=== PATIENT | male | born 1995 | race Hispanic/Latino ===

== ENCOUNTER 2019-11-29 19:23 | Emergency (ER) | payer SELFPAY ==
[2019-11-29] MEDS ORDERED: AZITHROMYCIN 250 MG TAB ONE (20:43)
[2019-11-29] MEDS ORDERED: KETOROLAC 30 MG/ML INJ ONE (20:43)
[2019-11-29] MEDS ORDERED: CEFTRIAXONE 250 MG/VIAL ONE (20:43)
[2019-11-29] MEDS ORDERED: WATER FOR INJ,STERILE 10 ML ONE (20:43)
[2019-11-29] MEDS ORDERED: HYDROCODONE/APAP 5/325 MG TAB ONE (20:46)
[2019-11-29] MEDS ORDERED: IBUPROFEN 400 MG TAB ONE (21:14)
[2019-11-29] MEDS ORDERED: PHENAZOPYRIDINE 100MG TAB PO ONE (21:14)
--- NOTE | 2019-11-29 21:16 | EDPHYS ---
Physician Documentation [facility] Name: Vel Morris Age: 24 yrs Sex: Male : 1995 Arrival Date: 11/29/2019 Time: 19:26 Bed 7 Private MD: ED Physician Valentina Ortega HPI: 11/29 20:14 This 24 yrs old Male presents to ER via Ambulatory with complaints of STD snw Exposure. 20:14 Onset: The symptoms/episode began/occurred acutely, 1 week(s) ago, and became snw persistent. Associated signs and symptoms: Pertinent positives: burning with urination s/p unprotected intercourse. The patient has not experienced similar symptoms in the past. The patient has not recently seen a physician. Historical: - Allergies: 19:30 NKDA; aj1 - Home Meds: 19:30 None [Active]; aj1 - PMHx: 19:30 None; aj1 - PSHx: 19:30 None; aj1 - Immunization history:: Flu vaccine is not up to date. - Coronavirus screen:: The patient has NOT traveled to [place] in the past 14 days. - Social history:: Smoking status: Patient/guardian denies using tobacco. - Ebola Screening: : Patient denies travel to an Ebola-affected area in the 21 days before illness onset. ROS: 20:13 Eyes: Negative for injury, pain, redness, and discharge, ENT: Negative for injury, snw pain, and discharge, Neck: Negative for injury, pain, and swelling, Cardiovascular: Negative for chest pain, palpitations, and edema, Respiratory: Negative for shortness of breath, cough, wheezing, and pleuritic chest pain, Abdomen/GI: Negative for abdominal pain, nausea, vomiting, diarrhea, and constipation, rectal pain Back: Negative for injury and pain, : Negative for injury, bleeding, discharge, and swelling, MS/Extremity: Negative for injury and deformity, Skin: Negative for injury, rash, and discoloration, Neuro: Negative for headache, weakness, numbness, tingling, and seizure. 20:13 Constitutional: Positive for body aches. Exam: 20:01 Constitutional: This is a well developed, well nourished patient who is awake, alert, snw and in no acute distress. Head/Face: Normocephalic, atraumatic. Eyes: Pupils equal round and reactive to light, extra-ocular motions intact. Lids and lashes normal. Conjunctiva and sclera are non-icteric and not injected. Cornea within normal limits. Periorbital areas with no swelling, redness, or edema. ENT: Nares patent. No nasal discharge, no septal abnormalities noted. Tympanic membranes are normal and external auditory canals are clear. Oropharynx with no redness, swelling, or masses, exudates, or evidence of obstruction, uvula midline. Mucous membranes moist. Neck: Trachea midline, no thyromegaly or masses palpated, and no cervical lymphadenopathy. Supple, full range of motion without nuchal rigidity, or vertebral point tenderness. No Meningismus. Chest/axilla: Normal chest wall appearance and motion. Nontender with no deformity. No lesions are appreciated. Respiratory: Lungs have equal breath sounds bilaterally, clear to auscultation and percussion. No rales, rhonchi or wheezes noted. No increased work of breathing, no retractions or nasal flaring. 20:01 Cardiovascular: Rate: tachycardic, Rhythm: regular, Heart sounds: normal. Vital Signs: 19:30 BP 131 / 89; Pulse 125; Resp 20; Temp 100.2; Pulse Ox 97% on R/A; Weight 149.69 kg (R); aj1 Height 5 ft. 10 in. (177.80 cm) (R); Pain 10/10; 21:04 BP 138 / 91; Pulse 113; Resp 18; Temp 100.6(O); Pulse Ox 100% on R/A; jb4 19:30 Body Mass Index 47.35 (149.69 kg, 177.80 cm) aj1 MDM: 19:33 Patient medically screened. debra 21:16 Data reviewed: vital signs, nurses notes. Data interpreted: Pulse oximetry: on room air snw is 100 %. Interpretation: normal. Counseling: I had a detailed discussion with the patient and/or guardian regarding: the historical points, exam findings, and any diagnostic results supporting the discharge/admit diagnosis, lab results, the need for outpatient follow up, to return to the emergency department if symptoms worsen or persist or if there are any questions or concerns that arise at home. Response to treatment: the patient's symptoms have mildly improved after treatment. Special discussion: I have referred the patient to see his PCP for further evaluation of high blood pressure. I discussed in detail with the patient the higher chance of wound infection based on his presenting history. Based on the history and exam findings, there is no indication for further emergent testing or inpatient evaluation. I discussed with the patient/guardian the need to see the primary care provider for further evaluation of the symptoms. 11/29 19:36 Order name: Flu snw 11/29 21:09 Order name: Influenza Screen (A ; Complete Time: 21:14 EDMS Administered Medications: 20:48 Drug: HYDROcodone-acetaminophen (5 mg-500 mg) 1 tabs {Note: Rass score 0.} Route: PO; jb4 21:14 Follow up: Response: No adverse reaction; Pain is decreased; RASS: Alert and Calm (0) jb4 20:49 Drug: Zithromax 1 grams Route: PO; jb4 21:14 Follow up: Response: No adverse reaction jb4 20:49 Drug: TORadol 30 mg Route: IM; Site: left gluteus; jb4 21:14 Follow up: Response: No adverse reaction; Pain is decreased jb4 20:50 Drug: Rocephin (cefTRIAXone) 250 mg Route: IM; Site: left gluteus; jb4 21:14 Follow up: Response: No adverse reaction jb4 21:13 Drug: Motrin 400 mg Route: PO; jb4 21:42 Follow up: Response: No adverse reaction jb4 21:13 Drug: Pyridium 100 mg Route: PO; jb4 21:42 Follow up: Response: No adverse reaction; Pain is decreased jb4 Disposition: 11/30 19:06 Co-signature as Attending Physician, Valentina Ortega MD. ma2 Disposition: 11/29/19 21:15 Discharged to Home. Impression: Urethritis and urethral syndrome. - Condition is Stable. - Discharge Instructions: Sexually Transmitted Disease, Urethritis, Adult, Proctitis, Safe Sex. - Prescriptions for Doxycycline Hyclate 100 mg Oral Tablet - take 1 tablet by ORAL route every 12 hours; 20 tablet. - Medication Reconciliation Form, Thank You Letter, Antibiotic Education, Prescription Opioid Use form. - Follow up: Emergency Department; When: As needed; Reason: Worsening of condition. Follow up: Private Physician; When: 1 - 2 days; Reason: Recheck today's complaints, Continuance of care, Re-evaluation by your physician. Signatures: Dispatcher [employer] Nicole Benson RN RN aj1 Giovani Segovia MD MD cha Therrien, Shelly, CAUL PULLER-C CAUL PULLER-Csnw Nichol Millan, RN RN lp1 Nick Miller RN RN jb4 Valentina Ortega MD MD ma2 Corrections: (The following items were deleted from the chart) 11/29 21:42 21:15 11/29/2019 21:15 Discharged to Home. Impression: Urethritis and urethral jb4 syndrome. Condition is Stable. Forms are Medication Reconciliation Form, Thank You Letter, Antibiotic Education, Prescription Opioid Use. Follow up: Emergency Department; When: As needed; Reason: Worsening of condition. Follow up: Private Physician; When: 1 - 2 days; Reason: Recheck today's complaints, Continuance of care, Re-evaluation by your physician. snw
--- NOTE | 2019-11-29 21:16 | ER ---
Nurse's Notes [facility] Name: Vel Morris Age: 24 yrs Sex: Male : 1995 Arrival Date: 11/29/2019 Time: 19:26 Bed 7 Private MD: Diagnosis: Urethritis and urethral syndrome Presentation: 11/29 19:28 Presenting complaint: Patient states: "It pablo when I pee, but it only hurts at the aj1 end when I finish peeing and I got discharged a little bit so I was thinking it was a sexually transmitted disease" States he has been feeling this way for the past week, but today he started running a fever so he came in. Transition of care: patient was not received from another setting of care. Onset of symptoms was November 2019. Risk Assessment: Do you want to hurt yourself or someone else? Patient reports no desire to harm self or others. Initial Sepsis Screen: Does the patient meet any 2 criteria? HR > 90 bpm. No. Patient's initial sepsis screen is negative. Does the patient have a suspected source of infection? Yes: Dysuria/Frequency/Urgency/UTI. Care prior to arrival: None. 19:28 Method Of Arrival: Ambulatory aj1 19:28 Acuity: JM 3 aj1 Triage Assessment: 19:30 General: Appears in no apparent distress. comfortable, Behavior is anxious. Pain: aj1 Complains of pain in pelvis. Neuro: Level of Consciousness is awake, alert, obeys commands. Cardiovascular: Patient's skin is warm and dry. Respiratory: Airway is patent Respiratory effort is even, unlabored, Respiratory pattern is regular, symmetrical. GI:. Historical: - Allergies: 19:30 NKDA; aj1 - Home Meds: 19:30 None [Active]; aj1 - PMHx: 19:30 None; aj1 - PSHx: 19:30 None; aj1 - Immunization history:: Flu vaccine is not up to date. - Coronavirus screen:: The patient has NOT traveled to [place] in the past 14 days. - Social history:: Smoking status: Patient/guardian denies using tobacco. - Ebola Screening: : Patient denies travel to an Ebola-affected area in the 21 days before illness onset. Screenin:35 Abuse screen: Denies threats or abuse. Nutritional screening: No deficits noted. jb4 Tuberculosis screening: No symptoms or risk factors identified. Fall Risk None identified. Assessment: 19:35 General: Appears in no apparent distress. uncomfortable, Behavior is calm, cooperative, jb4 appropriate for age. Pain: Complains of pain in groin Pain radiates to abdomen Pain currently is 9 out of 10 on a pain scale. Neuro: Level of Consciousness is awake, alert, obeys commands, Oriented to person, place, time, situation. Cardiovascular: Patient's skin is warm and dry. Respiratory: Airway is patent Respiratory effort is even, unlabored, Respiratory pattern is regular, symmetrical. GI: No signs and/or symptoms were reported involving the gastrointestinal system. : Urine is cloudy, Penile discharge is white, Genitalia appear normal Reports burning with urination, pain in bilateral flank(s), lower quadrant(s) in lower back scrotum, testicle, with urination. EENT: No signs and/or symptoms were reported regarding the EENT system. Derm: Skin is intact, Skin is pink, warm \\T\\ dry. Musculoskeletal: Circulation, motion, and sensation intact. Range of motion: intact in all extremities. 20:30 Reassessment: Patient appears in no apparent distress at this time. Patient and/or jb4 family updated on plan of care and expected duration. Pain level reassessed. Patient is alert, oriented x 3, equal unlabored respirations, skin warm/dry/pink. 21:41 Reassessment: Patient appears in no apparent distress at this time. Patient and/or jb4 family updated on plan of care and expected duration. Pain level reassessed. Patient is alert, oriented x 3, equal unlabored respirations, skin warm/dry/pink. Patient states feeling better. Vital Signs: 19:30 BP 131 / 89; Pulse 125; Resp 20; Temp 100.2; Pulse Ox 97% on R/A; Weight 149.69 kg (R); aj1 Height 5 ft. 10 in. (177.80 cm) (R); Pain 10/10; 21:04 BP 138 / 91; Pulse 113; Resp 18; Temp 100.6(O); Pulse Ox 100% on R/A; jb4 19:30 Body Mass Index 47.35 (149.69 kg, 177.80 cm) [facility] ED Course: 19:26 Patient arrived in ED. es 19:30 Triage completed. aj1 19:30 Arm band placed on Patient placed in an exam room. aj1 19:32 [facility] snw 19:33 Valentina Ortega MD is Attending Physician. snw 19:35 Patient has correct armband on for positive identification. Bed in low position. Call jb4 light in reach. Side rails up X 1. Pulse ox on. NIBP on. 20:16 Nick Miller, RN is Primary Nurse. jb4 21:42 No provider procedures requiring assistance completed. Patient did not have IV access jb4 during this emergency room visit. Administered Medications: 20:48 Drug: HYDROcodone-acetaminophen (5 mg-500 mg) 1 tabs {Note: Rass score 0.} Route: PO; jb4 21:14 Follow up: Response: No adverse reaction; Pain is decreased; RASS: Alert and Calm (0) jb4 20:49 Drug: Zithromax 1 grams Route: PO; jb4 21:14 Follow up: Response: No adverse reaction jb4 20:49 Drug: TORadol 30 mg Route: IM; Site: left gluteus; jb4 21:14 Follow up: Response: No adverse reaction; Pain is decreased jb4 20:50 Drug: Rocephin (cefTRIAXone) 250 mg Route: IM; Site: left gluteus; jb4 21:14 Follow up: Response: No adverse reaction jb4 21:13 Drug: Motrin 400 mg Route: PO; jb4 21:42 Follow up: Response: No adverse reaction jb4 21:13 Drug: Pyridium 100 mg Route: PO; jb4 21:42 Follow up: Response: No adverse reaction; Pain is decreased jb4 Outcome: 21:15 Discharge ordered by . snw 21:42 Discharged to home ambulatory. jb4 21:42 Condition: stable 21:42 Discharge instructions given to patient, Instructed on discharge instructions, follow up and referral plans. medication usage, safe sex practices, Demonstrated understanding of instructions, follow-up care, medications, Prescriptions given X 1. 21:42 Patient left the ED. jb4 Signatures: Nicole March RN RN aj1 Aline Abrams FNP-C RAWHIDE TRIMMER-Csnw Madelaine Yen Nick Miller RN RN jb4 Corrections: (The following items were deleted from the chart) 19:32 19:28 Acuity: JM 4 aj1 aj1
[2019-11-29 21:50] VITALS: BP 138/91; TEMP 100.6; O2SAT 100
== END 2019-11-29 21:42 | disposition home or self-care (01) ==
LOC: ER 19:23
DX: N34.2 Other urethritis (principal); N34.3 Urethral syndrome, unspecified
CPT/HCPCS: 87804; 96372; 99283; J0696

== ENCOUNTER 2020-12-03 22:55 | Inpatient (IN) | payer SELFPAY ==
[2020-12-04] MEDS ORDERED: NA CHLORIDE 0.9% 1,000 ML ONE ×3 (00:20→05:30)
[2020-12-04 00:26] LABS: Absolute Lymphocytes (CBC) 4.4 K/uL (0.7-4.9); Basophils % 0.3 % (0-1.3); Hematocrit 47.3 % (39.6-49.0); Lymphocytes % 37.2 % (15.3-44.8); MPV 9.5 fL (7.6-11.3); Protime INR 1.07; RBC Red Blood Cell Count 5.48 M/uL (4.33-5.43)
[2020-12-04 00:51] LABS: ALT/SGPT 82 U/L (12-78); AST/SGOT 165 U/L (15-37); Albumin 4.1 g/dL (3.4-5.0); Alkaline Phosphatase 75 U/L (45-117); BUN Blood Urea Nitrogen 19 mg/dL (7-18); Bicarbonate 22 mmol/L (21-32); Bilirubin Direct 0.1 mg/dL (0-0.2); Bilirubin Total 0.4 mg/dL (0.2-1.0); Glucose Level 115 mg/dL (74-106); Magnesium 2.6 mg/dL (1.8-2.4); NT PRO-BNP 8 pg/mL (<125); Potassium 3.2 mmol/L (3.5-5.1); Protein, Total 8.7 g/dL (6.4-8.2); Sodium Level 137 mmol/L (136-145); Troponin (Emerg Dept Use Only) < 0.02 ng/mL (0.0-0.045)
[2020-12-04 02:18] LABS: Barbiturates NEGATIVE (NEGATIVE); Benzodiazepines NEGATIVE (NEGATIVE); Cocaine POSITIVE (NEGATIVE); METHAMPHETAM NEGATIVE (NEGATIVE); Methadone NEGATIVE (NEGATIVE); Opiates NEGATIVE (NEGATIVE); Phencyclidine NEGATIVE (NEGATIVE); THC Cannibis POSITIVE (NEGATIVE)
[2020-12-04 02:26] LABS: SARS-COV-2 RT PCR NEGATIVE (NEGATIVE)
[2020-12-04] MEDS ORDERED: POTASSIUM 25 MEQ EFFERV TAB ONE ×2 (02:48→05:30)
--- NOTE | 2020-12-04 03:57 | EDPHYS ---
Physician Documentation [facility] Name: Vel Morris Age: 25 yrs Sex: Male : 1995 Arrival Date: 12/03/2020 Time: 22:57 Bed 7 Private MD: ED Physician Sam Zimmerman HPI: 12/04 00:49 This 25 yrs old Male presents to ER via Ambulatory with complaints of mh7 Fatigue.Cough. Numbness/tingling.. 00:51 The patient or guardian reports cough, that is intermittent, described as moderate, flu mh7 symptoms, myalgias, chills, sore throat, sweating, numbness/tingling all over body. Onset: The symptoms/episode began/occurred 2 day(s) ago. Severity of symptoms: At their worst the symptoms were moderate, 2 day(s) ago, in the emergency department the symptoms are unchanged. Modifying factors: The symptoms are alleviated by nothing, the symptoms are aggravated by nothing. Associated signs and symptoms: Pertinent positives: chest pain, diarrhea, earache, rhinorrhea, sore throat, this patient has no pertinent positive symptoms Pertinent negatives: chest pain, diarrhea, ear ache, fever, nausea, vomiting. Historical: - Allergies: 12/03 23:14 NKDA; lp1 - Home Meds: 23:14 None [Active]; lp1 - PMHx: 23:14 None; lp1 - PSHx: 23:14 None; lp1 - Immunization history:: Adult Immunizations up to date. - Social history:: Smoking status: Patient denies any tobacco usage or history of. Patient uses street drugs, marijuana. ROS: 12/04 00:51 Eyes: Negative for injury, pain, redness, and discharge, Neck: Negative for injury, mh7 pain, and swelling, Cardiovascular: Negative for chest pain, palpitations, and edema, Abdomen/GI: Negative for abdominal pain, nausea, vomiting, diarrhea, and constipation, Back: Negative for injury and pain, : Negative for injury, bleeding, discharge, and swelling, MS/Extremity: Negative for injury and deformity, Skin: Negative for injury, rash, and discoloration. Psych: Negative for depression, anxiety, suicide ideation, homicidal ideation, and hallucinations, Allergy/Immunology: Negative for hives, rash, and allergies, Endocrine: Negative for neck swelling, polydipsia, polyuria, polyphagia, and marked weight changes, Hematologic/Lymphatic: Negative for swollen nodes, abnormal bleeding, and unusual bruising. Neuro: Negative for altered mental status, dizziness, gait disturbance, hearing loss, loss of consciousness, seizure activity, speech changes, syncope, near syncope, tinnitus, tremor, visual changes, weakness. Exam: 00:51 Head/Face: Normocephalic, atraumatic. Eyes: Pupils equal round and reactive to light, mh7 extra-ocular motions intact. Lids and lashes normal. Conjunctiva and sclera are non-icteric and not injected. Cornea within normal limits. Periorbital areas with no swelling, redness, or edema. 00:51 ENT: Nares patent. No nasal discharge, no septal abnormalities noted. Tympanic membranes are normal and external auditory canals are clear. Oropharynx with no redness, swelling, or masses, exudates, or evidence of obstruction, uvula midline. Mucous membranes moist. Neck: Trachea midline, no thyromegaly or masses palpated, and no cervical lymphadenopathy. Supple, full range of motion without nuchal rigidity, or vertebral point tenderness. No Meningismus. Chest/axilla: Normal chest wall appearance and motion. Nontender with no deformity. No lesions are appreciated. Cardiovascular: Regular rate and rhythm with a normal S1 and S2. No gallops, murmurs, or rubs. Normal PMI, no JVD. No pulse deficits. Respiratory: Lungs have equal breath sounds bilaterally, clear to auscultation and percussion. No rales, rhonchi or wheezes noted. No increased work of breathing, no retractions or nasal flaring. Abdomen/GI: Soft, non-tender, with normal bowel sounds. No distension or tympany. No guarding or rebound. No evidence of tenderness throughout. Back: No spinal tenderness. No costovertebral tenderness. Full range of motion. Skin: Warm, dry with normal turgor. Normal color with no rashes, no lesions, and no evidence of cellulitis. MS/ Extremity: Pulses equal, no cyanosis. Neurovascular intact. Full, normal range of motion. Neuro: Awake and alert, GCS 15, oriented to person, place, time, and situation. Cranial nerves II-XII grossly intact. Motor strength 5/5 in all extremities. Sensory grossly intact. Cerebellar exam normal. Normal gait. Psych: Awake, alert, with orientation to person, place and time. Behavior, mood, and affect are within normal limits. 00:51 Constitutional: The patient appears in no acute distress, alert, awake, uncomfortable. 00:51 ENT: Mouth: Oral mucosa: dry. Vital Signs: 12/03 23:15 BP 163 / 107; Pulse 98; Resp 20; Temp 98.4(O); Pulse Ox 100% on R/A; Weight 136.08 kg lp1 (R); Height 5 ft. 11 in. (180.34 cm); Pain 0/10; 12/04 01:45 Pulse 88; Resp 18; Pulse Ox 97% on R/A; mg2 02:24 BP 141 / 78; Pulse 85; Resp 16; Pulse Ox 99% ; rr5 03:34 Pulse 83; Resp 18; Pulse Ox 97% on R/A; mg2 12/03 23:15 Body Mass Index 41.84 (136.08 kg, 180.34 cm) lp1 MDM: 03:54 Differential Diagnosis: Bronchitis Influenza Upper Respiratory Infection Pharyngitis mh7 Viral Syndrome Pneumonia. Data reviewed: vital signs, nurses notes, lab test result(s), cardiac enzymes, CBC, electrolytes, urinalysis, urine drug screen, EKG, radiologic studies, CT scan, plain films. Data interpreted: Pulse oximetry: on room air is 97 %. Interpretation: normal. Counseling: I had a detailed discussion with the patient and/or guardian regarding: the historical points, exam findings, and any diagnostic results supporting the discharge/admit diagnosis, the presence of at least one elevated blood pressure reading (>120/80) during this emergency department visit, lab results, radiology results, the need for further work-up and treatment in the hospital. Response to treatment: the patient's symptoms have mildly improved after treatment. 03:56 Patient medically screened. [facility] 12/03 23:52 Order name: Basic Metabolic Panel; Complete Time: :11 [facility] 12/03 23:52 Order name: CBC with Diff; Complete Time: 00:36 [facility] 12/03 23:52 Order name: LFT's; Complete Time: :11 [facility] 12/03 23:52 Order name: Magnesium; Complete Time: :11 [facility] 12/03 23:52 Order name: NT PRO-BNP; Complete Time: 01:11 [facility] 12/03 23:52 Order name: PT-INR; Complete Time: 00:36 [facility] 12/03 23:52 Order name: Troponin (emerg Dept Use Only); Complete Time: 01:11 [facility] 12/03 23:52 Order name: UDS; Complete Time: 02:26 [facility] 12/03 23:54 Order name: Influenza Screen (a \T\ B) [facility] 12/03 23:54 Order name: Strep; Complete Time: 01:11 [facility] 12/04 00:13 Order name: Glucose, Ancillary Testing; Complete Time: 00:36 [facility] 12/03 23:52 Order name: XRAY Chest (1 view) [facility] 12/03 23:52 Order name: EKG; Complete Time: 23:52 [facility] 12/03 23:52 Order name: Cardiac monitoring; Complete Time: 00:13 [facility] 12/03 23:52 Order name: EKG - Nurse/Tech; Complete Time: 00:13 [facility] 12/03 23:52 Order name: IV Saline Lock; Complete Time: 00:13 [facility] 12/03 23:52 Order name: CT Head Brain wo Cont [facility] 12/04 01:01 Order name: Throat Culture [facility] 12/04 01:12 Order name: CPK; Complete Time: 03:47 [facility] 12/04 02:27 Order name: COVID-19/FLU A+B; Complete Time: 02:31 [facility] 12/03 23:52 Order name: Labs collected and sent; Complete Time: 00:13 [facility] 12/03 23:52 Order name: O2 Per Protocol; Complete Time: 00:13 [facility] 12/03 23:52 Order name: O2 Sat Monitoring; Complete Time: 00:13 [facility] 12/03 23:52 Order name: Urine Dipstick-Ancillary (obtain specimen); Complete Time: 01:38 7 Administered Medications: 00:12 Drug: NS 0.9% 1000 ml Route: IV; Rate: 1000 ml; Site: right antecubital; rr5 01:45 Follow up: Response: No adverse reaction; IV Status: Completed infusion; IV Intake: mg2 1000ml 02:34 Drug: Potassium Effervescent Tablet 50 mEq Route: PO; rr5 03:30 Follow up: Response: No adverse reaction rr5 03:55 Drug: Ativan 1 mg Route: IVP; Site: right antecubital; mg2 04:50 Follow up: Response: No adverse reaction rr5 03:55 Drug: Zofran (Ondansetron) 4 mg Route: IVP; Site: right antecubital; mg2 04:55 Follow up: Response: No adverse reaction rr5 03:56 Drug: NS 0.9% 1000 ml Route: IV; Rate: 1000 ml; Site: right antecubital; mg2 05:00 Follow up: Response: No adverse reaction; IV Status: Completed infusion; IV Intake: rr5 1000ml 05:13 CANCELLED (Physician Discretion): Potassium Effervescent Tablet 50 mEq PO once; rr5 dissolve in 4 ounces of water or juice 05:34 Drug: NS 0.9% 1000 ml Route: IV; Rate: 150 ml/hr; Site: right antecubital; mg2 05:34 Follow up: IV Status: Infusion continued upon admission rr5 05:50 Follow up: IV Status: Infusion continued upon admission rr5 Disposition: 12/04/20 03:56 Hospitalization ordered by Geovany Reyes for Inpatient Admission. Preliminary diagnosis are Rhabdomyolysis, Cocaine abuse. - Bed requested for Telemetry/MedSurg (Inpatient). - Status is Inpatient Admission. bp - Condition is Stable. - Problem is new. - Symptoms have improved. Signatures: Dispatcher [employer] EDAK Nichol Millan RN RN lp1 Davi Morales, CREATIVE SERVICES SPECIALIST-C CREATIVE SERVICES SPECIALIST-Cla1 Aurea Jernigan RN RN Luis An RN RN Galilea Cisse Michele, RN RN mg2 Geovany Zabala RN RN rr5 Sam Zimmerman MD MD 7 Corrections: (The following items were deleted from the chart) 00:41 00:07 CORONAVIRUS+MR.LAB.BRZ ordered. [facility] EDAK 00:42 02 23:55 Influenza Screen (A ordered. [facility] 12/04 04:50 03:56 Hospitalization Ordered by Geovany Reyes MD for Inpatient Admission. Preliminary cg diagnosis is Rhabdomyolysis; Cocaine abuse. Bed requested for Telemetry/MedSurg (Inpatient). Status is Inpatient Admission. Condition is Stable. Problem is new. Symptoms have improved. mh7 05:13 04:47 Potassium Effervescent Tablet 50 mEq PO once; dissolve in 4 ounces of water or rr5 juice ordered. la1 05:13 05:11 Potassium Effervescent Tablet 50 mEq PO once; dissolve in 4 ounces of water or rr5 juice given. rr5 05:13 05:13 Potassium Effervescent Tablet 50 mEq PO once; dissolve in 4 ounces of water or rr5 juice ordered. rr5 09:30 04:50 12/04/2020 03:56 Hospitalization Ordered by Geovany Reyes MD for Inpatient eb Admission. Preliminary diagnosis is Rhabdomyolysis; Cocaine abuse. Bed requested for [facility] ER HOLD. Status is Inpatient Admission. Condition is Stable. Problem is new. Symptoms have improved. cg 10:22 09:30 12/04/2020 03:56 Hospitalization Ordered by Geovany Reyes MD for Inpatient bp Admission. Preliminary diagnosis is Rhabdomyolysis; Cocaine abuse. Bed requested for Telemetry/MedSurg (Inpatient). Status is Inpatient Admission. Condition is Stable. Problem is new. Symptoms have improved. eb
--- NOTE | 2020-12-04 03:57 | ER ---
Nurse's Notes [facility] Name: Vel Morris Age: 25 yrs Sex: Male : 1995 Arrival Date: 12/03/2020 Time: 22:57 Bed 7 Private MD: Diagnosis: Rhabdomyolysis;Cocaine abuse Presentation: 12/03 23:09 Chief complaint: Patient states: Reports sweats and chills, feels dehydrated, fatigue, lp1 feels numb to left arm, tingling sensation; Began 2 days ago; states nasal draining, congestion, head pressure. Coronavirus screen: congestion, fatigue, headache, shaking with chills, Client presents with at least one sign or symptom that may indicate coronavirus-19. Standard/surgical mask placed on the client. Ebola Screen: No symptoms or risks identified at this time. Risk Assessment: Do you want to hurt yourself or someone else? Patient reports no desire to harm self or others. Onset of symptoms was December 03, 2020. 23:09 Method Of Arrival: Ambulatory lp1 23:09 Acuity: JM 3 lp1 23:15 Initial Sepsis Screen: Does the patient meet any 2 criteria? No. Patient's initial lp1 sepsis screen is negative. Does the patient have a suspected source of infection? No. Patient's initial sepsis screen is negative. Historical: - Allergies: 23:14 NKDA; lp1 - Home Meds: 23:14 None [Active]; lp1 - PMHx: 23:14 None; lp1 - PSHx: 23:14 None; lp1 - Immunization history:: Adult Immunizations up to date. - Social history:: Smoking status: Patient denies any tobacco usage or history of. Patient uses street drugs, marijuana. Screenin:14 Abuse screen: Denies threats or abuse. Denies injuries from another. Nutritional lp1 screening: No deficits noted. Tuberculosis screening: No symptoms or risk factors identified. Fall Risk None identified. Assessment: 12/04 00:15 General: Appears in no apparent distress. uncomfortable, ill, Behavior is cooperative, rr5 anxious. Pain: Denies pain. Neuro: Level of Consciousness is awake, alert, obeys commands, Oriented to person, place, time, situation, Reports numbness weakness. Cardiovascular: Capillary refill < 3 seconds Patient's skin is warm and dry. Respiratory: Airway is patent Respiratory effort is even, unlabored, Respiratory pattern is regular, symmetrical. GI: No signs and/or symptoms were reported involving the gastrointestinal system. : No signs and/or symptoms were reported regarding the genitourinary system. EENT: No signs and/or symptoms were reported regarding the EENT system. Derm: Skin is pink, warm \T\ dry. Decubitus. Musculoskeletal: Circulation, motion, and sensation intact. Capillary refill < 3 seconds, Reports numbness in left arm. 01:45 Reassessment: Patient appears in no apparent distress at this time. Patient and/or mg2 family updated on plan of care and expected duration. Pain level reassessed. Patient is alert, oriented x 3, equal unlabored respirations, skin warm/dry/pink. 03:00 Reassessment: Patient appears in no apparent distress at this time. Patient is alert, rr5 oriented x 3, equal unlabored respirations, skin warm/dry/pink. awaiting for CPK result, follow up to laboratory staff. Vital Signs: 12/03 23:15 BP 163 / 107; Pulse 98; Resp 20; Temp 98.4(O); Pulse Ox 100% on R/A; Weight 136.08 kg lp1 (R); Height 5 ft. 11 in. (180.34 cm); Pain 0/10; 12/04 01:45 Pulse 88; Resp 18; Pulse Ox 97% on R/A; mg2 02:24 BP 141 / 78; Pulse 85; Resp 16; Pulse Ox 99% ; rr5 03:34 Pulse 83; Resp 18; Pulse Ox 97% on R/A; mg2 12/03 23:15 Body Mass Index 41.84 (136.08 kg, 180.34 cm) lp1 ED Course: 12/03 22:57 Patient arrived in ED. bp1 23:13 Triage completed. lp1 23:13 Arm band placed on. lp1 23:42 Sam Zimmerman MD is Attending Physician. mh7 23:59 Geovany Zabala, MAGALY is Primary Nurse. rr5 12/04 00:10 Inserted saline lock: 20 gauge in right antecubital area, using aseptic technique. rr5 Blood collected. 00:11 XRAY Chest (1 view) In Process Unspecified. EDMS 00:13 Patient has correct armband on for positive identification. Placed in gown. Bed in low rr5 position. Call light in reach. Side rails up X2. alarm security or surveillance monitor on. Pulse ox on. NIBP on. 00:13 COVID swab sent to lab. Flu and/or RSV swab sent to lab. Strep swab sent to lab. rr5 00:26 CT Head Brain wo Cont In Process Unspecified. EDMS 03:37 No provider procedures requiring assistance completed. mg2 03:55 Geovany Reyes MD is Hospitalizing Provider. mh7 05:01 Patient admitted, IV remains in place. mg2 07:21 Primary Nurse role handed off by Geovany Zabala, RN bp 07:21 Luis An, MAGALY is Primary Nurse. bp Administered Medications: 00:12 Drug: NS 0.9% 1000 ml Route: IV; Rate: 1000 ml; Site: right antecubital; rr5 01:45 Follow up: Response: No adverse reaction; IV Status: Completed infusion; IV Intake: mg2 1000ml 02:34 Drug: Potassium Effervescent Tablet 50 mEq Route: PO; rr5 03:30 Follow up: Response: No adverse reaction rr5 03:55 Drug: Ativan 1 mg Route: IVP; Site: right antecubital; mg2 04:50 Follow up: Response: No adverse reaction rr5 03:55 Drug: Zofran (Ondansetron) 4 mg Route: IVP; Site: right antecubital; mg2 04:55 Follow up: Response: No adverse reaction rr5 03:56 Drug: NS 0.9% 1000 ml Route: IV; Rate: 1000 ml; Site: right antecubital; mg2 05:00 Follow up: Response: No adverse reaction; IV Status: Completed infusion; IV Intake: rr5 1000ml 05:13 CANCELLED (Physician Discretion): Potassium Effervescent Tablet 50 mEq PO once; rr5 dissolve in 4 ounces of water or juice 05:34 Drug: NS 0.9% 1000 ml Route: IV; Rate: 150 ml/hr; Site: right antecubital; mg2 05:34 Follow up: IV Status: Infusion continued upon admission rr5 05:50 Follow up: IV Status: Infusion continued upon admission rr5 Intake: 01:45 IV: 1000ml; Total: 1000ml. mg2 05:00 IV: 1000ml; Total: 2000ml. rr5 Outcome: 03:56 Decision to Hospitalize by Provider. mh7 05:01 Admitted to ER Hold. Please see [facility] for further documentation. mg2 05:01 Condition: stable 05:01 Instructed on the need for admit, Demonstrated understanding of instructions. 10:22 Patient left the ED. bp Signatures: Dispatcher [employer] EDMS Nichol Millan RN RN lp1 Luis An RN RN bp Ron Moctezuma RN RN mg2 Geovany Zabala RN RN rr5 Adina Camacho Maurice, MD MD 7 Corrections: (The following items were deleted from the chart) 05:13 05:00 Potassium Effervescent Tablet 50 mEq PO rr5 rr5
[2020-12-04] MEDS ORDERED: ONDANSETRON 4 MG/2 ML VIAL ONE (03:59)
[2020-12-04] MEDS ORDERED: LORazepam 2 MG/ML VIAL ONE (03:59)
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
[2020-12-04] MEDS: NA CHLORIDE 0.9% 1,000 ML IV SCH ×2 (05:14→12:52)
[2020-12-04] MEDS ORDERED: LORazepam 2 MG/ML VIAL IV PRN (05:14)
[2020-12-04] MEDS ORDERED: ONDANSETRON 4 MG/2 ML VIAL IV PRN (05:14)
[2020-12-04] MEDS ORDERED: ACETAMINOPHEN 500 MG TAB PO PRN (05:14)
[2020-12-04 05:18] VITALS: BMI 41.8
[2020-12-04 11:49] VITALS: O2SAT 97
[2020-12-04 13:35] LABS: Magnesium 2.5 mg/dL (1.8-2.4); Potassium 3.7 mmol/L (3.5-5.1)
[2020-12-04 16:47] VITALS: BP 121/64; TEMP 97.9
[2020-12-04] MEDS ORDERED: POTASSIUM CL SA 10 MEQ TAB PO ONE (17:00)
--- NOTE | 2020-12-04 20:15 | RAD REPORT ---
EXAM DESCRIPTION: RAD - Chest Single View - 12/04/2020 12:10 am CLINICAL HISTORY: COUGH COMPARISON: None. FINDINGS: Single frontal radiograph view of the chest. Cardiomediastinal silhouette: Normal size and contour. Lungs: No pneumothorax or large effusion. No definite airspace opacity. Very low lung volumes. Bones: No acute osseous abnormality. Upper abdomen: No abnormality identified. IMPRESSION: 1. No definite acute pneumonic process. Very low lung volumes. Electronically signed by: Reed Aldridge 12/04/2020 2:08 AM RN GASTROENTEROLOGY Due to temporary technical issues with the PACS/Fluency reporting system, reports are being signed by the in house radiologists without review as a courtesy to insure prompt reporting. The interpreting radiologist is fully responsible for the content of the report.
--- NOTE | 2020-12-04 20:39 | RAD REPORT ---
EXAM DESCRIPTION: CT - Head Brain Wo Cont - 12/04/2020 6:09 am CLINICAL HISTORY: 25 years Male HEADACHE COMPARISON: None TECHNIQUE: Contiguous axial images of the brain were obtained without the administration of intraven ous contrast.This exam was performed according to our departmental dose-optimization program which in cludes use of Automated Exposure Control, adjustment of the mA and/or kV according to patient size an d/or use of iterative reconstruction technique. DLP: 893 mGy*cm FINDINGS: Brain: No acute intracranial hemorrhage. No extra-axial collection. No mass effect or ratna iation. Ventricles: Within normal limits in size. Globes and orbits: No acute abnormality. Bones: No acute osseous finding Paranasal sinuses: No air-fluid level. Mastoid air cells: Well pneumatized. Soft tissues: Within normal limits IMPRESSION: No acute intracranial abnormality. Electronically signed by: Kalpesh Rzio DO 12/04/2020 12:33 AM PRIMARY TEACHER Due to temporary technical issues with the PACS/Fluency reporting system, reports are being signed by the in house radiologists without review as a courtesy to insure prompt reporting. The interpreting radiologist is fully responsible for the content of the report.
== END 2020-12-04 17:25 | disposition left against medical advice (07) | DRG 918 ==
LOC: ER 22:55 → ERHOLD 12-04 04:47 → 4TH 12-04 10:07 → OBSVTOIN 12-04 12:37
PROVIDERS: ADMIT Hospitalist; ATTEND Hospitalist
DX: T40.5X1A Poisoning by cocaine, accidental (unintentional), initial encounter (principal); M62.82 Rhabdomyolysis; Z68.41 Body mass index [BMI] 40.0-44.9, adult; E66.9 Obesity, unspecified; E87.6 Hypokalemia; F41.9 Anxiety disorder, unspecified; Z56.0 Unemployment, unspecified; Z20.2 Contact with and (suspected) exposure to infections with a predominantly sexual mode of transmission; Z20.822 Contact with and (suspected) exposure to COVID-19
CPT/HCPCS: 0240U; 36415; 70450; 71045; 80048; 80076; 80307; 82550; 82947; 83735; 83880; 84484; 85025; 85610; 87070; 87081; 96361; 96374; 96375; 99285; G0378; J2405; J7030